=== PATIENT | male | born 1970 | race Caucasian/White ===

== ENCOUNTER 2021-06-04 16:03 | Emergency (ER) | payer MEDICAID, OTHER ==
[~2021-06-04] VITALS: Ht 175.3 cm; Wt 74.8 kg
[2021-06-04] MEDS ORDERED: IPRATROPIUM BROMIDE 0.5 MG/2.5 ML NEBU NEB ONE ×2 (16:30→19:30)
[2021-06-04] MEDS ORDERED: predniSONE 20 MG TABLET PO ONE (16:30)
[2021-06-04] MEDS ORDERED: predniSONE 50 MG TABLET PO ONE (16:30)
[2021-06-04] MEDS ORDERED: ALBUTEROL SULFATE 2.5 MG/3 ML NEBU NEB ONE ×2 (16:30→19:30)
[2021-06-04] MEDS ORDERED: predniSONE 50 MG TABLET ONE (16:33)
[2021-06-04] MEDS ORDERED: predniSONE 20 MG TABLET ONE (16:33)
[2021-06-04] MEDS ORDERED: ALBUTEROL SULFATE 2.5 MG/3 ML NEBU ONE ×2 (16:39→20:26)
[2021-06-04] MEDS ORDERED: IPRATROPIUM BROMIDE 0.5 MG/2.5 ML NEBU ONE ×2 (16:39→20:26)
[2021-06-04 17:02] LABS: HEMATOCRIT 47.8 % (36.7-47.1); MEAN CORPUSCULAR VOLUME 94.9 fL (73.0-96.2); PLATELET COUNT (AUTO) 354 K/uL (152-348)
[2021-06-04 17:11] LABS: POTASSIUM 3.1 mmol/L (3.5-5.1)
[2021-06-04] MEDS ORDERED: levoFLOXacin 750 MG/D5W 150 ML PIGGYBACK IV ONE (17:15)
[2021-06-04] MEDS ORDERED: IV NORMAL SALINE 1000 ML BAG IV ONE (17:15)
[2021-06-04] MEDS ORDERED: PRED1TAB PO (17:17)
[2021-06-04 17:24] LABS: BILIRUBIN,DIRECT 0.2 mg/dL (0.0-0.2); BILIRUBIN,TOTAL 0.9 mg/dL (0.2-1.0); TOTAL PROTEIN, SERUM 7.6 g/dL (6.4-8.2)
[2021-06-04] MEDS ORDERED: levoFLOXacin 750MG/D5W 150 ML IV ONE (20:22)
--- NOTE | 2021-06-04 21:12 | NUR ---
PRETTY Mabry from [facility] called in for clinical information.
--- NOTE | 2021-06-04 21:20 | NUR ---
Dr. Zhao speaking with Dr. Scott of [facility].
--- NOTE | 2021-06-04 22:33 | NUR ---
glass beveler Kathryn from [facility] called with the information: Room: [address] [place] [address] Give report to: Admit MD: Sonia, admit Dx: hypoxia/COPD
--- NOTE | 2021-06-04 22:50 | NUR ---
Marcia pillowcase sewer from [facility] called back with ambulance authorization # [id number]. She states that [facility] should be called .
--- NOTE | 2021-06-04 23:06 | NUR ---
[facility] boat dispatcher Citlaly tovar ETA of ambulance crew will be approximately 3-4am.
--- NOTE | 2021-06-04 23:30 | NUR ---
Patient oxygen on simple face mask titrated down to 6 LPM, tolerating it well.
--- NOTE | 2021-06-04 23:55 | NUR ---
Patient is resting comfortably in bed with eyes closed, no acute distress noted.
--- NOTE | 2021-06-05 00:12 | NUR ---
Report given to PRETTY Elaine.
--- NOTE | 2021-06-05 01:51 | NUR ---
Patient is resting comfortably in bed with eyes closed, no acute distress noted.
--- NOTE | 2021-06-05 03:00 | NUR ---
Titrated oxygen down to 2 LPM, patient on nasal cannula. Tolerating it well.
--- NOTE | 2021-06-05 03:00 | NUR ---
Patient is resting comfortably in bed with eyes closed, no acute distress noted.
--- NOTE | 2021-06-05 03:08 | NUR ---
[facility] arrived, report given to Amarjit Dominique EMT-B.
--- NOTE | 2021-06-05 03:29 | NUR ---
Patient Transfers to outside Facility via [facility] BLS unit [facility]. Physician: MD Scott Location: [facility]; Room 2236 Medical/Surgical
== END 2021-06-05 03:28 | disposition short-term general hospital (02) ==
LOC: ER 16:03
DX: J44.0 Chronic obstructive pulmonary disease with (acute) lower respiratory infection (principal); J18.9 Pneumonia, unspecified organism; J44.1 Chronic obstructive pulmonary disease with (acute) exacerbation; Z20.822 Contact with and (suspected) exposure to COVID-19; F17.210 Nicotine dependence, cigarettes, uncomplicated; E87.6 Hypokalemia; D47.3 Essential (hemorrhagic) thrombocythemia; Z82.49 Family history of ischemic heart disease and other diseases of the circulatory system
CPT/HCPCS: 36415; 71045; 80048; 80076; 83880; 84484; 85025; 87040 ×2; 87426; 93005; 94640 ×2; 96365; 96366; 99285; J1956; J7512 ×2; 70030-TC; A4663; J3590; J7030